=== PATIENT | female | born 1945 | race Caucasian/White ===

== ENCOUNTER 2017-05-08 11:48 | Emergency (ER) | payer MEDICARE ==
--- NOTE | ~2017-05-08 | CR150 ---
[facility] A Service of [facility] & [facility] RADIOLOGY TEXT RESULTS PATIENT: CEZAR ROLLE LOCATION: SED : 47 UNIT #: [id number] AGE: [address]: Marco Calles MD SEX: F ORDER DR: [id number] [place] [id number] E MR#: [id number] Acc #: [id number] NAME: CEZAR ROLLE : 1945 SEX: F STUDY DATE/TIME: 05/08/2017 12:51 UNIT: SED ROOM: STUDY DESCRIPTION: CR Hip Min 2 Views Lt Attending Physician: Marco Calles M.D. Ordering Physician: Marco Calles M.D. Primary Care Physician: Fatoumata Delatorre A.P.R.N. MEDICAL IMAGING REPORT This report is preliminary unless electronic signature is present. EXAM Left hip 2 views, 05/08/2017 12:51 hours HISTORY Patient fell at home 3-4 days ago landing on her bottom. Patient complains of left hip pain and knee pain posteriorly. COMPARISON 06/16/2013 FINDINGS AP pelvis and frog lateral view left hip demonstrate overall normal bone density. There is no fracture, dislocation or significant degenerative change. Stable degenerative change at the lumbosacral junction. IMPRESSION Negative pelvis and left hip. Dictated by... Keerthi Garcia M.D. THIS IS AN ELECTRONICALLY VERIFIED REPORT Keerthi Garcia M.D. at 05/08/2017 5:18 PM Yusra TD: 05/08/2017 16:08 JOB #: [id number] MEDICAL IMAGING REPORT Page 1 of 1
--- NOTE | ~2017-05-08 | US85 ---
[facility] A Service of [facility] & [facility] RADIOLOGY TEXT RESULTS PATIENT: CEZAR ROLLE LOCATION: SED : 46 UNIT #: [id number] AGE: [address]: Marco Calles MD SEX: F ORDER DR: [id number] [address] [address] [id number] E MR#: [id number] Acc #: [id number] NAME: CEZAR ROLLE : 1945 SEX: F STUDY DATE/TIME: 05/08/2017 12:13 UNIT: SED ROOM: STUDY DESCRIPTION: LE Veins Unilat or Ltd Stdy Attending Physician: Marco Calles M.D. Ordering Physician: Marco Calles M.D. Primary Care Physician: Fatoumata Delatorre A.P.R.N. MEDICAL IMAGING REPORT This report is preliminary unless electronic signature is present. EXAM Left lower extremity venous Doppler HISTORY 72-year-old female, left leg pain for several weeks, no history of previous DVT. Patient not on blood thinners. FINDINGS 2-D and Doppler evaluation of the left lower extremity demonstrates normal flow and compressibility of the common femoral, profunda femoral and popliteal and calf veins. There is a short segment of the superficial femoral vein, which demonstrates only partial compression but normal Doppler flow. This is nonspecific but may be related to chronic nonocclusive thrombus. Given the short segment involvement and normal Doppler flow this may not be clinically significant. Saphenous veins were patent. IMPRESSION Partial segment of the distal superficial femoral vein demonstrates only partial compression. There is, however, presence of flow through this segment and though nonspecific this may represent a site of old partial thrombus. Given the isolated involvement this may not be clinically significant. The remainder of the left lower extremity demonstrates normal flow and compressibility of the veins. Dictated by... Paulina Rodriguez M.D. THIS IS AN ELECTRONICALLY VERIFIED REPORT Paulina Rodriguez M.D. at 05/12/2017 9:30 AM JORGE/aleja [facility] A Service of [facility] & [facility] RADIOLOGY TEXT RESULTS PATIENT: CEZAR ROLLE [place] [facility] [place] #: [id number] AGE: [address]: Marco Calles MD SEX: F ORDER DR: TD: 05/08/2017 15:50 JOB #: [id number] MEDICAL IMAGING REPORT Page 1 of 1
--- NOTE | ~2017-05-08 | CR169 ---
[facility] A Service of [facility] & [facility] RADIOLOGY TEXT RESULTS PATIENT: CEZAR ROLLE LOCATION: SED : 47 UNIT #: [id number] AGE: [address]: Marco Calles MD SEX: F ORDER DR: [id number] [place] [id number] E MR#: [id number] Acc #: [id number] NAME: CEZAR ROLLE : 1945 SEX: F STUDY DATE/TIME: 05/08/2017 12:51 UNIT: SED ROOM: STUDY DESCRIPTION: CR Knee 2 Views Lt Attending Physician: Marco Calles M.D. Ordering Physician: Marco Calles M.D. Primary Care Physician: Fatoumata Delatorre A.P.R.N. MEDICAL IMAGING REPORT This report is preliminary unless electronic signature is present. EXAM Left knee, 2 views, 05/08/2017, 1251 hours. CLINICAL HISTORY 72-year-old woman who fell 3-4 days ago at home landing on her bottom. Posterior hip and knee pain. COMPARISON None. FINDINGS AP and cross-table lateral views demonstrate no joint effusion or fracture. Medial and lateral compartments appear normal. There is mild spurring in the patellofemoral compartment. There is a small bone island seen in the subarticular bone of the lateral femoral condyle. IMPRESSION 1. No joint effusion or fracture. Trace spurring in the patellofemoral compartment. Dictated by... Keerthi Garcia M.D. THIS IS AN ELECTRONICALLY VERIFIED REPORT Keerthi Garcia M.D. at 05/08/2017 5:18 PM MELONIE/mable TD: 05/08/2017 16:24 JOB #: [id number] MEDICAL IMAGING REPORT Page 1 of 1
[~2017-05-08 11:48] MED LIST: ANTIVERT PO; ASPIRIN81 M1 PO; ASPIRIN81 MG PO; ATORVASTATIN CA10 MG PO; ATORVASTATIN CA40 MG PO; LORTAB 5/500 TA1 TA1 PO; MACROBID PO; MEVACOR; OMEPRAZOLE20 M1 PO; OMEPRAZOLE40 M1 PO; OMEPRAZOLE40 MG PO; PERCOCET5/325 PO; PRILOSEC40 MG; PROBIOTIC1 EACH PO; SIMVASTATIN20 MG PO; SIMVASTATIN40 MG PO; TRAMADOL HCL50 M1 PO; TYLENOL #3; ULTRA-LIGHT RO1 EACH MC; ULTRAM PO; ZOFRAN ODT PO
== END 2017-05-08 13:39 | disposition home or self-care (01) ==
LOC: SED 11:48
DX: M25.562 Pain in left knee (principal); Z88.5 Allergy status to narcotic agent; Z88.8 Allergy status to other drugs, medicaments and biological substances
CPT/HCPCS: 29530; 73502; 73560; 93971; 99283

== ENCOUNTER → 2017-05-12 | Outpatient (CLI) | payer MEDICARE ==
--- NOTE | ~2017-05-12 | US85 ---
[facility] A Service [facility] RADIOLOGY TEXT RESULTS PATIENT: CEZAR ROLLE LOCATION: SNIV : 47 UNIT #: [id number] AGE: [address]: Fatoumata Delatorre APRN SEX: F ORDER DR: [id number] [address] [address] [id number] O MR#: [id number] Acc #: [id number] NAME: CEZAR ROLLE : 1945 SEX: F STUDY DATE/TIME: 05/12/2017 14:01 UNIT: SNIV ROOM: STUDY DESCRIPTION: [facility] Unilat or [facility] Stdy Attending Physician: Fatoumata Delatorre A.P.R.N. Referring Physician: Fatoumata Delatorre A.P.R.N. Ordering Physician: Fatoumata Delatorre A.P.R.N. Primary Care Physician: Fatoumata Delatorre A.P.R.N. MEDICAL IMAGING REPORT This report is preliminary unless electronic signature is present. EXAM Unilateral left lower extremity venous Doppler. Date of study: 05/12/2017 HISTORY Recently diagnosed with left leg DVT, with nonocclusive superficial femoral vein thrombus on 05/08. Reevaluation requested to assess response to therapy. PROCEDURE Pierce-scale imaging, color-Doppler flow imaging Doppler waveform analysis. FINDINGS As on the prior exam, there is nonocclusive thrombus in the superficial femoral vein. This is unchanged since the prior study. The remaining left lower extremity deep venous system both above and below the knee as well as superficial saphenous vein is normal. IMPRESSION No change since 05/08. Persistent nonocclusive thrombus in the superficial femoral vein. Otherwise negative. Dictated by... Geoffrey Steven M.D. THIS IS AN ELECTRONICALLY VERIFIED REPORT Geoffrey Steven M.D. at 05/13/2017 10:26 AM TEV/[place] [facility] A Service of [facility] RADIOLOGY TEXT RESULTS PATIENT: CEZAR ROLLE LOCATION: SNIV : 47 UNIT #: [id number] AGE: [address]: Fatoumata Delatorre APRN SEX: F ORDER DR: TD: 05/12/2017 19:44 JOB #: [id number] MEDICAL IMAGING REPORT Page 1 of 1
== END | disposition home or self-care (01) ==
LOC: SNIV 13:43
DX: M79.605 Pain in left leg (principal); I82.812 Embolism and thrombosis of superficial veins of left lower extremity
CPT/HCPCS: 93971